=== PATIENT | female | born 1940 | race Caucasian/White ===

== ENCOUNTER → 2017-08-22 | Outpatient (CLI) | payer MEDICARE | END | disposition home or self-care (01) | LOC: CFH 15:54 | PROVIDERS: ATTEND Internal Medicine | DX: I65.22 Occlusion and stenosis of left carotid artery (principal); I77.1 Stricture of artery | CPT/HCPCS: 93880 ==

== ENCOUNTER → 2018-03-22 | Outpatient (CLI) | payer MEDICARE | END | disposition home or self-care (01) | LOC: CFH 14:18 | DX: Z12.31 Encounter for screening mammogram for malignant neoplasm of breast (principal); M81.0 Age-related osteoporosis without current pathological fracture; N95.9 Unspecified menopausal and perimenopausal disorder | CPT/HCPCS: 77080; 77067 ==

== ENCOUNTER 2020-03-10 14:39 | Observation (INO) | payer MEDICARE ==
[~2020-03-10] VITALS: Ht 167.6 cm; Wt 81.1 kg
--- NOTE | 2020-03-10 14:56 | NUR ---
PT HERE C/O LOWER ABD PAIN AND RUQ ABD PAIN X1 WEEK, ALSO REPORTS HAVING "PASTY DARK STOOLS" X1 WEEK. PLACED ON VITALS MONITORS, CALL LIGHT WITHIN REACH.
--- NOTE | 2020-03-10 15:15 | NUR ---
PT SITTING SLIGHTLY RECLINED IN ED GURNEY. PT REPORTS RUQ ABD PAIN X1 WEEK, INCREASED FOLLOWING MEALS. PT DENIES N/V/D. NAD NOTED AT THIS TIME. RESPIRATIONS EVEN AND UNLABORED ON RA.
[2020-03-10 15:49] LABS: BASOPHILS % (AUTO) 1 % (0-1); EOSINOPHILS % (AUTO) 1 % (1-7); LYMPHOCYTES % (AUTO) 13 % (22-44); MEAN CORPUSCULAR HEMOGLOBIN 29.2 pg (27.0-34.8); MEAN CORPUSCULAR HGB CONC 33.5 g/dL (32.4-35.8); MEAN PLATELET VOLUME 6.9 fL (7.4-10.4); MONOCYTES % (AUTO) 6 % (2-9); NEUTROPHILS % (AUTO) 80 % (42-75); PLATELET COUNT 290 x10^3/uL (130-400); RED CELL DISTRIBUTION WIDTH 13.8 % (9.6-15.2)
[2020-03-10 15:56] LABS: MD NO
--- NOTE | 2020-03-10 16:29 | NUR ---
PT AMBULATES WELL TO THE BATHROOM WITH RN ESCORT. BACK IN BED. MEDICATED PER EMAR. NAD NOTED AT THIS TIME. RESPIRATIONS EVEN AND UNLABORED ON RA. SIDE RAIL UP, CALL LIGHT IN REACH.
[2020-03-10 16:45] LABS: TROPONIN I < 0.015 ng/mL (0.000-0.045)
[2020-03-10 17:12] LABS: ALANINE AMINOTRANSFERASE 20 U/L (12-78); ALBUMIN 3.8 g/dL (3.4-5.0); ANION GAP 10 mmol/L (5-15); CALCIUM 9.2 mg/dL (8.5-10.1); CHLORIDE 108 mmol/L (98-107); CREATININE 0.84 mg/dL (0.55-1.02)
[2020-03-10 17:14] LABS: ALKALINE PHOSPHATASE 75 U/L (45-117); BILIRUBIN,TOTAL 0.3 mg/dL (0.2-1.0)
--- NOTE | 2020-03-10 17:35 | NUR ---
PT AWAITING ERMD RECHECK. REQUESTS ICE CHIPS. RN TO VERIFY WITH PROVIDER PRIOR TO PO FLUIDS.
--- NOTE | 2020-03-10 17:39 | NUR ---
PER GERMAN LINDQUIST CURRENTLY AWAITING CALL BACK FROM SURGEON FOR SURGERY SCHEDULE. POSSIBLY PT TO BE DC AND OUTPT SURGERY. COVID SWAB COMPLETED. CURRENTLY HOLDING PO FLUIDS.
[2020-03-10 17:51] LABS: MICROSCOPIC AUTO
[2020-03-10] MEDS ORDERED: BUPIVACAINE/PF 0.5% ONE (18:25)
[2020-03-10] MEDS ORDERED: EPINEPHRINE 1 MG/ML, 1ML ONE (18:25)
--- NOTE | 2020-03-10 18:28 | NUR ---
PT AMBULATES WELL TO BATHROOM FOLLOWING IV START. NAD NOTED.
--- NOTE | 2020-03-10 18:58 | NUR ---
REPORT TO ELIAS CERDA RN AND TO ATILIO YANCEY RN.
[2020-03-10] MEDS ORDERED: FENTANYL PF 100 MCG/2ML ONE ×3 (19:19→21:08)
[2020-03-10] MEDS ORDERED: MIDAZOLAM 1 MG/ML, 2ML ONE (19:19)
[2020-03-10] MEDS ORDERED: SUCCINYLCHOLINE 20 MG/ML, 10ML ONE (19:30)
[2020-03-10] MEDS ORDERED: SUGAMMADEX 200 MG/2 ML IVPush ONE (19:30)
[2020-03-10] MEDS ORDERED: ROCURONIUM 10 MG/ML,10ML ONE (19:30)
[2020-03-10] MEDS ORDERED: ONDANSETRON 2MG/ML, 2ML ONE (19:30)
[2020-03-10] MEDS ORDERED: CEFOTETAN 2 GM ONE (19:30)
[2020-03-10] MEDS ORDERED: PROPOFOL 10 MG/ML, 20ML ONE (19:30)
[2020-03-10] MEDS ORDERED: BUPIVACAINE/PF 0.5% INFIL ONE (19:57)
[2020-03-10] MEDS ORDERED: METOPROLOL 1 MG/ML, 5ML IV PRN (20:00)
[2020-03-10] MEDS ORDERED: OXYcodone 5 MG/5 ML ORAL.SOL UDC PO PRN (20:00)
[2020-03-10] MEDS ORDERED: LABETALOL 5MG/ML, 20ML IV PRN (20:00)
[2020-03-10] MEDS ORDERED: ONDANSETRON 2MG/ML, 2ML IVPush PRN (20:00)
[2020-03-10] MEDS ORDERED: PROMETHAZINE 25 MG/ML, 1ML IVPush PRN (20:00)
[2020-03-10] MEDS ORDERED: DIPHENHYDRAMINE 50 MG/ML, 1ML IVPush PRN (20:00)
[2020-03-10] MEDS ORDERED: hydrALAzine 20 MG/ML, 1ML IV PRN ×2 (20:00→22:30)
[2020-03-10] MEDS ORDERED: ACETAMINOPHEN 325 MG TABLET PO PRN ×2 (20:00→22:30)
[2020-03-10] MEDS ORDERED: HYDROmorphone 1 MG/ML, 1ML INJ ONE ×2 (20:53→21:43)
[2020-03-10] MEDS ORDERED: hydrALAzine 20 MG/ML, 1ML ONE (20:53)
[2020-03-10] MEDS ORDERED: OXYcodone 5 MG/5 ML ORAL.SOL UDC ONE (20:53)
[2020-03-10] MEDS: FENTANYL PF 100 MCG/2ML IV PRN ×5 (20:56→21:41)
[2020-03-10] MEDS: HYDROmorphone 1 MG/ML, 1ML INJ IVPush PRN ×2 (21:21→21:33)
[2020-03-10] MEDS ORDERED: ENALAPRILAT 1.25 MG/ML, 2ML IV PRN (22:30)
[2020-03-10] MEDS ORDERED: DIPHENHYDRAMINE 50 MG/ML, 1ML IV PRN (22:30)
[2020-03-10] MEDS ORDERED: DIPHENHYDRAMINE 25 MG CAPSULE PO PRN (22:30)
[2020-03-10] MEDS ORDERED: LORazepam 2 MG/ML, 1ML IV PRN (22:30)
[2020-03-10] MEDS ORDERED: LORazepam 1MG TABLET PO PRN (22:30)
[2020-03-10] MEDS ORDERED: ACETAMINOPHEN 650 MG SUPP PR PRN (22:30)
[2020-03-10] MEDS ORDERED: ENTER SLIDING SCALE INSULIN IF ORDERED XX PRN (22:30)
[2020-03-10] MEDS ORDERED: ONDANSETRON 2MG/ML, 2ML IV PRN (22:30)
[2020-03-10] MEDS: POTASSIUM CHLORIDE 20 MEQ in D5%-0.45% NACL 1,000 ML IV SCH (22:47)
[2020-03-11 04:11] VITALS: BP 138/76
[2020-03-11 06:07] LABS: MEAN CORPUSCULAR HEMOGLOBIN 28.9 pg (27.0-34.8); MEAN CORPUSCULAR HGB CONC 32.9 g/dL (32.4-35.8); MEAN PLATELET VOLUME 7.5 fL (7.4-10.4); PLATELET COUNT 268 x10^3/uL (130-400); RED BLOOD COUNT 4.64 x10^6/uL (3.82-5.3); RED CELL DISTRIBUTION WIDTH 14.1 % (9.6-15.2)
[2020-03-11 06:21] LABS: ALBUMIN 3.4 g/dL (3.4-5.0); ANION GAP 8 mmol/L (5-15); CALCIUM 8.7 mg/dL (8.5-10.1); CHLORIDE 108 mmol/L (98-107)
[2020-03-11 06:26] LABS: ALANINE AMINOTRANSFERASE 38 U/L (12-78); ALKALINE PHOSPHATASE 64 U/L (45-117); BILIRUBIN,TOTAL 0.3 mg/dL (0.2-1.0); CREATININE 0.86 mg/dL (0.55-1.02); TOTAL PROTEIN 7.2 g/dL (6.4-8.2)
[2020-03-11 06:37] LABS: MD YES
[2020-03-11 06:38] LABS: <PLATELET ESTIMATE> ADEQUATE; <PLT MORPHOLOGY> NORMAL PLT MORPH; <RBC MORPHOLOGY> NORMAL; BAND#(MANUAL) 3.15 x10^3/uL; BANDS%(MANUAL) 18 % (0-7); LYMPH#(MANUAL) 0.35 x10^3/uL (1-3.4); LYMPHS% (MANUAL) 2 % (22-44); MONOS#(MANUAL) 0.88 x10^3/uL (0.3-2.7); MONOS% (MANUAL) 5 % (2-9); SEG#(MANUAL) 13.13 x10^3/uL (1.8-6.8); SEGS% (MANUAL) 75 % (42-75)
[2020-03-11] MEDS ORDERED: LEVO125T PO (06:41)
[2020-03-11] MEDS ORDERED: AMLO2.5T2 PO (06:41)
[2020-03-11 07:15] VITALS: BP 138/83
[2020-03-11] MEDS: CEFOTETAN PMX 1GM/50ML 50 ML IVPB SCH ×2 (08:24→20:50)
[2020-03-11] MEDS: INSULIN REGULAR, HUMAN 100 UNITS/ML, 3ML MEDIUM DOSE SS SQ-INSULIN SCH ×4 (08:30→20:50)
[2020-03-11] MEDS: POTASSIUM CHLORIDE 20 MEQ in D5%-0.45% NACL 1,000 ML IV SCH (11:50)
[2020-03-11 12:59] VITALS: BP 130/75
[2020-03-11] MEDS: OXYcodone/APAP 5/325MG TABLET PO PRN ×2 (13:22→20:49)
[2020-03-11 18:42] VITALS: BP 132/74
[2020-03-12 00:50] VITALS: BP 122/73
[2020-03-12] MEDS: OXYcodone/APAP 5/325MG TABLET PO PRN ×2 (01:01→18:05)
[2020-03-12] MEDS: POTASSIUM CHLORIDE 20 MEQ in D5%-0.45% NACL 1,000 ML IV SCH ×2 (01:34→14:54)
[2020-03-12] MEDS: INSULIN REGULAR, HUMAN 100 UNITS/ML, 3ML MEDIUM DOSE SS SQ-INSULIN SCH ×3 (07:00→16:00)
[2020-03-12 07:23] VITALS: BP 134/75
[2020-03-12] MEDS ORDERED: OXYC-302 PO (09:31)
[2020-03-12 14:09] VITALS: BP 155/72
== END 2020-03-12 19:45 | disposition home or self-care (01) ==
LOC: ED 16:55 → EDIP 18:35 → INTOOBSV 18:35 → 4NE 22:09
PROVIDERS: ADMIT Surgery; ATTEND Surgery
DX: K80.00 Calculus of gallbladder with acute cholecystitis without obstruction (principal); Z20.822 Contact with and (suspected) exposure to COVID-19; K43.0 Incisional hernia with obstruction, without gangrene; I10 Essential (primary) hypertension; E11.9 Type 2 diabetes mellitus without complications; Z79.899 Other long term (current) drug therapy
CPT/HCPCS: 36415; 47562; 76700; 80053; 81001; 82962; 83690; 84484; 85025; 87086; 87635; 88304; 93005; 96361; 96365; 96366; 96375; 99285; G0378; J0330; J0360; J1170; J1815; J2060; J2250; J2405; J2704; J3010; J3480; S0020; J0171

== ENCOUNTER 2020-04-25 10:51 | Outpatient (CLI) | payer MEDICARE ==
[~2020-04-25 10:51] MED LIST: AMLO2.5T2 PO; LEVO125T PO; OXYC1TAB14 PO
== END 2020-04-25 23:59 | disposition home or self-care (01) ==
LOC: CFH 10:51
DX: Z12.31 Encounter for screening mammogram for malignant neoplasm of breast (principal); M81.0 Age-related osteoporosis without current pathological fracture
CPT/HCPCS: 77063; 77067; 77080